=== PATIENT | male | born 1950 | race Caucasian/White ===

== ENCOUNTER → 2019-01-23 | Outpatient (CLI) | payer MEDICARE, BC ==
--- NOTE | 2019-01-23 14:56 | RADIOLOGY REPORT (SQ) ---
EXAM DESCRIPTION: MRI RT LOWER JOINT WITHOUT COMPLETED DATE/TIME: 01/23/2019 11:08 am REASON FOR STUDY: PAIN IN RIGHT KNEE (M25.561) M25.561 PAIN IN RIGHT KNEE COMPARISON: None. TECHNIQUE: Rightknee images acquired and stored on PACS. Multiplanar images include fat sensitive s equences as T1, water sensitive sequences as FST2 or STIR, cartilage sensitive sequences as FSPD, and gradient echo sequences. LIMITATIONS: None. FINDINGS: JOINT AND BURSAE: Physiologic joint space fluid. Tiny Do's cyst. BONE CORTEX AND MARROW: No marrow signal abnormality worrisome for occult fracture or aggressive gifty ow replacement process ACL: Intact. No degeneration or ganglion cyst. PCL: Intact. MCL: Intact. No periligamentous edema or fluid. LCL: Intact. No periligamentous edema or fluid. MEDIAL MENISCUS: Complex tear mid body and posterior horn medial meniscus without parameniscal cyst. This is best shown on sagittal image 19 and coronal images 12-18 LATERAL MENISCUS: No tears. No abnormal signal. 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 No bone brui ses or reactive marrow edema. No osteophytes. LATERAL COMPARTMENT: Cartilage preserved. No bone bruises or reactive marrow edema. No osteophytes. PATELLA: No chondromalacia. No subchondral cysts. Medial and lateral retinacula intact. EXTENSOR MECHANISM: Intact. Quadriceps and patella tendons normal. SOFT TISSUES: Punctate metallic artifact in the prepatellar soft tissues axial image 7 OTHER: No other significant finding. 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
== END ==
LOC: RAD 10:12
PROVIDERS: ATTEND Physician Assistant
DX: M25.561 Pain in right knee (principal)